=== PATIENT | female | born 1965 | race Caucasian/White ===

== ENCOUNTER 2017-08-08 11:09 | Outpatient (CLI) | payer BC ==
--- NOTE | 2017-08-16 08:55 | MMO ---
BILATERAL SCREENING MAMMOGRAM: Date: 08/08/17 COMPARISON: 04/29/14 study from outside facility. HISTORY: Annual screening exam. This patient's mammogram was interpreted with the assistance of computer-aided detection. FINDINGS: The breasts are heterogeneously dense. Vascular calcifications are seen I both breasts. There are no suspicious calcifications demonstrated. There is an area of asymmetry seen in the upper right breast, not definitely visualized on the CC view, but could be in the mid to outer portion of the breast. IMPRESSION: BIRADS 0: Incomplete: Need Additional Imaging Evaluation and/or Prior Mammograms for Comparison Additional imaging is required. In this case, focal spot compression views of the right breast in the area marked. The facility will notify the patient of the need for additional imaging services. POS: MIGDALIA
== END 2017-08-08 11:10 | disposition home or self-care (01) ==
LOC: SCSMAMMO 11:09
PROVIDERS: ATTEND Family Medicine
DX: Z12.31 Encounter for screening mammogram for malignant neoplasm of breast (principal)
CPT/HCPCS: 77067; G0202

== ENCOUNTER 2017-08-27 09:30 | Outpatient (CLI) | payer BC ==
--- NOTE | 2017-08-27 12:53 | ULT ---
ULTRASOUND RIGHT BREAST: Date: 08/27/17 HISTORY: Ultrasound of the upper outer right breast performed to assess a focal area of density seen on mammog seymour. There was a questioned area of distortion in the outer right breast on the CC mammogram. FINDINGS/IMPRESSION: I examined the patient at real-time with technologist. No sonographic abnormality is seen in the uppe r outer right breast quadrant. Recommend follow-up right breast mammogram and ultrasound in 6 months to confirm stability. BIRADS Category 3 - probably benign. Recommend 6 month follow-up. POS: MIGDALIA
--- NOTE | 2017-08-27 12:59 | MMO ---
DIAGNOSTIC RIGHT MAMMOGRAM: Date: 08/27/17 HISTORY: Additional views of the right breast performed to assess an area of parenchymal asymmetry noted on sc reening exam. FINDINGS: In the spot compression CC view, there is a questioned area of distortion in the outer right breast. This is not confirmed on ML view or MLO spot compression views. Ultrasound of the outer right breast was performed and there is no sonographic mass identified. Recommend short-term follow-up with repeat right breast mammogram and ultrasound in 6 months to confi rm stability. IMPRESSION: BIRADS 3: Probably Benign Finding - Short-Interval Follow-Up Suggested Recommend 6 month follow-up right breast. POS: MIGDALIA
== END 2017-08-27 09:31 | disposition home or self-care (01) ==
LOC: MAMMO 09:30
PROVIDERS: ATTEND Family Medicine
DX: R92.2 Inconclusive mammogram (principal)
CPT/HCPCS: G0206-RT

== ENCOUNTER 2018-06-04 10:07 | Outpatient (CLI) | payer BC | END 2018-06-04 10:08 | disposition home or self-care (01) | LOC: BICMAMMO 10:07 | PROVIDERS: ATTEND Family Medicine | DX: R92.8 Other abnormal and inconclusive findings on diagnostic imaging of breast (principal) | CPT/HCPCS: G0279 ==

== ENCOUNTER 2018-07-31 07:33 | Outpatient (CLI) | payer BC ==
[2018-07-31 08:32] LABS: Estimated GFR-MDRD - POC Greater than 90
--- NOTE | 2018-07-31 12:56 | MRI ---
BILATERAL BREAST MRI WITH AND WITHOUT CONTRAST: HISTORY: Architectural distortion in the upper outer aspect of the right breast on mammography. The ultrasoun d was normal. COMPARISON: Mammogram and ultrasound from 06/04/2018. TECHNIQUE: Multiplanar, multisequence MR images were obtained of the breasts with and without IV contrast. Cont rast-enhancement curves and 3D MIP reformats were generated on a [employer] work station. FINDINGS: Scattered fibroglandular breast tissue is seen. Minimal background parenchymal enhancement is presen t. In the upper, outer aspect of the right breast, the area of architectural distortion is again seen. In the center of this architectural distortion, there is a subcentimeter area of plateau type enhance ment, measuring 5 mm in size. Inferior to this area of architectural distortion, with a central enha ncing mass, there is a well circumscribed, 4 mm focus, demonstrating a type I enhancement curve. Thi s also demonstrates high T2 signal and may represent an intramammary lymph node. No suspicious mass or enhancement is seen in the left breast. No enlarged axillary lymph nodes are seen. No internal mammary lymph nodes are identified. No marro w signal abnormality is present. IMPRESSION: There is abnormal enhancement in an area of architectural distortion seen on prior mammogram. There is no ultrasound correlate. This area is difficult to see with standard 2D mammography without the 3 D tomosynthesis slices. Therefore, an MRI guided biopsy of this area is recommended. BI-RADS category 4-Suspicious abnormality. An MRI guided biopsy is recommended. This was communicated to the nurse navigator, Pricila Gomez, at 11:12 a.m. on 07/31/2018. She is plann ing to get ahold to Dr. Murphy, to ensure that she is aware of the recommendation for biopsy. CODE CR POS: MIGDALIA
== END 2018-07-31 07:34 | disposition home or self-care (01) ==
LOC: BICMRI 07:33
PROVIDERS: ATTEND Family Medicine
DX: R92.8 Other abnormal and inconclusive findings on diagnostic imaging of breast (principal)
CPT/HCPCS: 82565; C8908

== ENCOUNTER → 2018-08-19 | Day surgery (SDC) | payer BC ==
[~2018-08-19] MED LIST: Gadobenate Dimeglumine 529 MG/1 ML (20ML VIAL) ONE
--- NOTE | 2018-08-19 15:21 | MRI ---
PROCEDURE NOTE: PREPROCEDURE DIAGNOSIS: Architectural distortion in the outer aspect of the right breast on mammography without ultrasonograp hic correlate. Abnormal area of enhancement in the right breast at the 9 o'clock position. POSTPROCEDURE DIAGNOSIS: Architectural distortion in the outer aspect of the right breast on mammography without ultrasonograp hic correlate. Abnormal area of enhancement in the right breast at the 9 o'clock position. PROCEDURE: MRI-guided right breast mass/architectural distortion biopsy. FORKLIFT SUPERVISOR: Dr. Song. COMPLICATIONS: None. SPECIMEN: Four 10-gauge vacuum-assisted cord biopsy specimens of right breast. ANESTHESIA: 10 mL of buffered 1% Lidocaine. TECHNIQUE: Prior to the procedure, the risks and benefits of an MRI-guided biopsy were explained with the patien t and she consented fully to the procedure. The patient's prior mammograms were reviewing showing an area of architectural distortion and abnormal enhancement in the outer aspect of the right breast. An IV was started. The patient was scanned in the breast compression coil in the prone position. Th e area of architectural distortion and abnormal enhancement was identified in the outer aspect of the right breast. The area of best entry into the right breast for biopsy was then prepped with Betadin e. Lidocaine was used to anesthetize the skin and soft tissues surrounding this area in the lateral aspect of the right breast. A small skin incision was made allowing for passage of the guiding troca r to the 10-gauge vacuum-assisted core biopsy device. Using MRI guidance, the guiding trocar was placed in the right breast with approach from lateral. A scan was performed showing the guiding trocar in good position in relation to the area of architectur al distortion and abnormal enhancement. There is a significant amount of bleeding lateral to the are a of architectural distortion causing abnormal signal on the prebiopsy film. There is slightly limit ed visualization, but the needle appeared in good position. A 10-gauge vacuum-assisted core biopsy device was then placed 4 separate times through the guiding tr ocar and 4 separate core biopsy specimens were obtained. These were placed in formalin. A scan was again performed at the completion of the procedure showing hematoma surrounding the biopsy site more medial in the breast and along the lateral aspect of the breast as was previously seen. The area of architectural distortion and abnormal enhancement could not be seen on the post biopsy image secondar y to the significant amount of post biopsy hematoma in the right breast. A small amount of air was a lso seen extending towards the nipple in the right breast. A biopsy clip was then placed in the biopsy site. Pressure was held to maintain hemostasis. The patient had a postprocedure mammogram showing a biopsy clip and inferior and medial to the biopsy site of approximately 2 to 2.5 cm. IMPRESSION: Status post MRI biopsy of right breast. POS: MORAIMA
== END ==
LOC: BICMRI 12:24
PROVIDERS: ATTEND Family Medicine
PROC: 0HBT3ZX Excision of Right Breast, Percutaneous Approach, Diagnostic (ICD-10-PCS; principal; 2018-08-19)
DX: N62 Hypertrophy of breast (principal)
CPT/HCPCS: 19085; 88305; A9579